=== PATIENT | female | born 1975 | race Caucasian/White ===

== ENCOUNTER 2022-07-08 13:57 | Outpatient (RCR) | payer OTHER, SELFPAY ==
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
--- NOTE | 2022-08-02 16:04 | PCPTNOTE ---
PHYSICAL THERAPY DISCHARGE 08-02-22 Attending Provider: AIDA Damon Patient:Elvi Laura Date of :1975 Ms. Laura has not returned for any further treatments since the 07/08/2022 evaluation for the diagnosis of R hip pain, therefore she will be discharged at this time. The goals were not assessed. Thank you for referring this patient to [facility].
== END 2022-08-03 11:43 | disposition home or self-care (01) ==
LOC: ANHPT 13:57
PROVIDERS: PCP Physician Assistant; Visit Provider Physician Assistant
DX: M25.551 Pain in right hip (principal)
CPT/HCPCS: 97161; 97530